=== PATIENT | male | born 1985 | race African-American/Black ===

== ENCOUNTER → 2019-04-24 | Outpatient (CLI) | payer SELFPAY ==
--- NOTE | 2019-04-24 17:19 | REP ---
Clinical: Pre-employment physical . Comparison: None . Technique: PA and lateral. Findings: The mediastinum and cardiac silhouette are normal. The lung mcdaniel are clear and without acute consolidation, effusion, or pneumothorax. The skeletal structures are intact and normal. Impression: 1. No acute cardiopulmonary process. Electronically Signed by Dheeraj Trujillo MD 04/24/2019 05:10 P
== END ==
LOC: EDBD → M WUC 15:28
PROVIDERS: ATTEND Family Medicine Adult Medicine
DX: R76.11 Nonspecific reaction to tuberculin skin test without active tuberculosis (principal)

== ENCOUNTER → 2020-06-22 | Outpatient (CLI) | payer OTHER, SELFPAY ==
--- NOTE | 2020-06-22 15:20 | REP ---
Left hip: Two views. History: Left hip pain. AP and frog-leg views of the left hip demonstrate a bony convexity at the head neck junction superiorly and laterally in the left hip. 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 There is minimal superior acetabular spurring. Femoral head is smooth and rounded otherwise. In addition, there is some soft tissue calcification adjacent to the greater trochanter consistent with calcific tendonitis or bursitis changes. No bony erosive changes seen. 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 Mild acetabular spurring. Alcira trochanteric soft tissue calcification may reflect tendonitis or bursitis. Electronically Signed by Juliocesar Dooley MD 06/22/2020 03:12 P
== END ==
LOC: M LRY 14:55
PROVIDERS: ATTEND Physician Assistant
DX: M25.552 Pain in left hip (principal)